=== PATIENT | male | born 1960 | race Caucasian/White ===

== ENCOUNTER 2017-07-23 06:32 | Day surgery (SDC) | payer BC ==
[~2017-07-23] VITALS: Ht 182.9 cm; Wt 120.0 kg
[2017-07-23 07:07] VITALS: BP 137/94; PULSE 66; RESP 20; TEMP 98.1; O2SAT 94
[2017-07-23] MEDS ORDERED: ASMA220A INH (07:21)
[2017-07-23] MEDS ORDERED: OMEP20CA2 (07:21)
[2017-07-23] MEDS ORDERED: LISI10TA3 PO (07:21)
[2017-07-23] MEDS ORDERED: FLUT1INH7 INH (07:21)
[2017-07-23] MEDS ORDERED: MONT10TA4 PO (07:21)
[2017-07-23] MEDS ORDERED: CLAR10CA3 PO (07:21)
[2017-07-23] MEDS ORDERED: PLAV75TA29 PO (07:21)
[2017-07-23] MEDS ORDERED: LAMO25TA PO (07:21)
[2017-07-23] MEDS ORDERED: ATOR40TA16 PO (07:21)
[2017-07-23] MEDS ORDERED: SODIUM CHLOR 0.9% 1000 ML INJ 1,000 ML IV ONE (07:30)
[2017-07-23 07:55] LABS: AUTOMATED NEUTROPHIL # 5.3 TH/MM3 (1.8-7.7); BASOPHIL % 0.4 % (0.0-2.0); EOSINOPHIL # 0.3 TH/MM3 (0-0.4); EOSINOPHIL % 3.6 % (0.0-4.0); HEMO FLAGS DIFF FINAL; LYMPH % 20.6 % (9.0-44.0); LYMPHOCYTE # 1.6 TH/MM3 (1.0-4.8); MEAN CELL VOLUME 97.2 FL (80.0-100.0); MEAN CORPUSCULAR HEMOGLOBIN 32.6 PG (27.0-34.0); MEAN CORPUSCULAR HGB CONC 33.6 % (32.0-36.0); MONO % 8.8 % (0.0-8.0); NEUT % 66.6 % (16.0-70.0); PLATELET COUNT 209 TH/MM3 (150-450); RED BLOOD COUNT 4.73 MIL/MM3 (4.50-5.90); RED CELL DISTRIBUTION WIDTH 12.7 % (11.6-17.2)
[2017-07-23 08:04] LABS: APTT (PATIENT) 27.7 SEC (24.3-30.1); PROTHROMBIN TIME - PATIENT 10.7 SEC (9.8-11.6)
[2017-07-23 08:09] LABS: BICARBONATE 29.5 MEQ/L (21.0-32.0); POTASSIUM 4.1 MEQ/L (3.5-5.1)
--- NOTE | 2017-07-23 09:13 | PD.RAD ---
Post Procedure Progress Note Pre Procedure Diagnosis: (1) Headache Post Procedure Diagnosis: (1) Headache Procedure Date: Jul 23, 2017 Supervising Radiologist: Gustavo Begum Estimated blood loss: None Anesthesia: Local Plan of Activity Patient to Unit: ROPU Patient Condition: Good Additional Comments: LP completed without difficulty Single puncture at L3/4 Opening pressure 26 18 cc slight blood tinged then clear csf obtained. See PACS Report for procedural detail/treatment Gustavo Begum MD Jul 23, 2017 09:13
[2017-07-23 09:15] VITALS: BP 114/75; PULSE 60; RESP 16; TEMP 98.1; O2SAT 98
[2017-07-23 10:31] LABS: GROSS BLOOD TUBE #1 0 (0); GROSS BLOOD TUBE #2 2+ (0); GROSS BLOOD TUBE #3 4+ (0); SUPERNATE COLOR TUBE #1 CLEAR (CLEAR); SUPERNATE COLOR TUBE #2 CLEAR (CLEAR); SUPERNATE COLOR TUBE #3 CLEAR (CLEAR); VOLUME TUBE # 1 1.8 ML; VOLUME TUBE # 2 5.8 ML; VOLUME TUBE # 3 3.5 ML
[2017-07-23 10:32] LABS: CSF EOSINOPHILS 3 %; CSF LYMPHOCYTES 50 %; CSF MONOCYTES 21 %; CSF NEUTROPHILS 26 %; SUPERNATE COLOR TUBE #4 CLEAR (CLEAR); WBC TUBE #4 5 /MM3 (0-10)
[2017-07-23 10:40] LABS: GROSS BLOOD TUBE #4 1+ (0)
--- NOTE | 2017-07-23 15:47 | RADRPT ---
EXAM DATE/TIME: 07/23/2017 08:37 [facility] COMPARISON: No previous studies available for comparison. INDICATIONS : Patient presents with persistent headaches in need of lumbar puncture for evaluation. MEDICAL HISTORY : HTN Asthma Stroke Right sided weakness Alzheimers SURGICAL HISTORY : Lower Back surgery 2004 ENCOUNTER: Initial ACUITY: 1 year PAIN SCORE: 4/10 LOCATION: Headache, neck pain LUMBAR PUNCTURE TIME: 0901 hours FLUORO TIME: 1.1 minutes ACCESS LEVEL: L3-4 OPENING PRESSURE: 26 cm of water CLOSING PRESSURE: Not requested. FLUID: 18 cc of clear CSF was collected and sent to the laboratory for analysis. PROCEDURE : 1. Fluoroscopic guided lumbar puncture. 2. Recording of opening pressure. The risks, benefits and alternatives to the procedure were explained and verbal and written consent w as obtained. The site was prepped in sterile fashion. Full sterile technique was used, including ca p, mask, sterile gloves and gown and a large sterile sheet. Hand hygiene and 2% chlorhexidine and/or betadine/alcohol prep was utilized per protocol for cutaneous antisepsis. The skin and subcutaneous tissues were infiltrated with local anesthetic solution. With fluoroscopic guidance the lumbar thecal sac was punctured at the above level described above and the opening pressure was recorded. The above described fluid was removed without difficulty. The patient tolerated the procedure well and there were no complications. CONCLUSION: Uncomplicated fluoroscopically guided lumbar puncture with pressures as above. Gustavo Begum MD on July 23, 2017 at 15:45 Board Certified Radiologist. This report was verified electronically.
[2017-07-25 15:00] LABS: ALBUMIN SERUM 5130 mg/dL (3200 - 4800); IGG INDEX CSF 0.63 (<=0.85); IGG SERUM 958 mg/dL (767 - 1590); IGG/ALBUMIN CSF 0.12 (<=0.21); IGG/ALBUMIN SERUM 0.19 (<=0.40); OLIGOCLONAL BANDING CSF 0 bands; OLIGOCLONAL BANDING INTERPRET 0 bands (<4); OLIGOCLONAL BANDING SERUM 0 bands; SYNTHESIS RATE CSF 3.02 mg/24 h (<=12)
[2017-07-25 16:30] LABS: LYME IGG IMMUNOBLOT CSF None Detected bands (None Detected); LYME IGM IMMUNOBLOT CSF None Detected bands (None Detected)
[2017-07-25 19:52] LABS: VDRL CSF NON-REACTIVE (NON-REACTVE)
[2017-07-26 09:26] LABS: CSF CRYPTOCOCCUS AG CONF ND (NOT DETECTD)
== END 2017-07-23 11:20 | disposition home or self-care (01) ==
LOC: HROP 06:32 → HRIP 06:35 → HROP 11:20
PROVIDERS: ATTEND Psychiatry & Neurology Neurology
DX: G44.52 New daily persistent headache (NDPH) (principal); G30.9 Alzheimer's disease, unspecified; F02.80 Dementia in other diseases classified elsewhere, unspecified severity, without behavioral disturbance, psychotic disturbance, mood disturbance, and anxiety; I10 Essential (primary) hypertension; J45.909 Unspecified asthma, uncomplicated; Z86.73 Personal history of transient ischemic attack (TIA), and cerebral infarction without residual deficits
CPT/HCPCS: 62270; 77003; 80048; 82040; 82042; 82784; 82945; 83873; 83916; 84157; 85025; 85610; 85730; 86403; 86592; 86618; 87015; 87070; 87102; 87116; 87205; 87206; 89051; J7030